=== PATIENT | male | born 1955 | race Caucasian/White ===

== ENCOUNTER 2021-08-22 04:53 | Emergency (ER) | payer MEDICARE, BC ==
--- NOTE | 2021-08-22 05:21 | EDM.PDOC ---
ED HPI GENERAL MEDICAL PROBLEM - General Chief Complaint: General Stated Complaint: FALL INJURING LEFT SIDE Time Seen by Provider: 08/22/21 05:10 Source of Information: Reports: Patient History Limitations: Reports: No Limitations - History of Present Illness INITIAL COMMENTS - FREE TEXT/NARRATIVE: Baldomero is a 66-year-old male presenting to the ED for evaluation of injuries related to a fall this morning. Patient states he has not been feeling well for the last couple of days with congestion, cough, shortness of breath and chest tightness. He has been sleeping downstairs at the cabin to isolate himself from his due to his illness. This morning he got up and needed to go to the bathroom but instead of going upstairs he decided to had outdoors. Unfortunately he did not make it as he had a syncopal episode landing on the concrete floor of the downstairs cabin. His heard him fall and went down to check on him finding him on the ground. He struck the posterior left side of his head, chest, left shoulder and the left hip on the ground. In addition to the pain in these locations he also is complaining of neck pain. He was able to ambulate. The reason that he decided to go outside instead of upstairs to the bathroom as he is also been experiencing right and knee pain and had just undergone an MRI of the knee to evaluate for this. He does report having syncopal episodes previously secondary to pain. He is not really certain of the events that led up to his unconsciousness this morning. The patient has been vaccinated for Covid with the J&J vaccine x1. Left Shoulder Pain Score (Numeric/FACES): 6 - Related Data Allergies Allergy/AdvReac Type Severity Reaction Status Date / Time No Known Allergies Allergy Verified 08/22/21 05:20 Home Meds: Home Meds Citalopram Hydrobromide [Celexa] 10 mg PO DAILY 08/22/21 [History] Zolpidem Tartrate [Ambien] 5 mg PO BEDTIME 08/22/21 [History] atorvaSTATin [Lipitor] 10 mg PO DAILY 08/22/21 [History] ED ROS GENERAL - Review of Systems Review Of Systems: See Below Constitutional: Reports: Chills, Fatigue HEENT: Reports: Rhinitis Respiratory: Reports: Shortness of Breath, Cough Cardiovascular: Reports: Chest Pain (Posterior left chest) Endocrine: Reports: Fatigue GI/Abdominal: Reports: No Symptoms : Reports: No Symptoms Musculoskeletal: Reports: Neck Pain, Shoulder Pain (Left shoulder pain), Joint Pain (Left hip pain) Skin: Reports: Wound (An abrasion on the left scalp over the temporal region and over the left mastoid.) Neurological: Reports: Syncope Psychiatric: Reports: No Symptoms Hematologic/Lymphatic: Reports: No Symptoms Immunologic: Reports: Seasonal Allergy ED EXAM, GENERAL - Physical Exam Exam: See Below Exam Limited By: No Limitations General Appearance: Alert, Mild Distress Eye Exam: Bilateral Eye: EOMI, Nystagmus (Nystagmus with rightward gaze causing some dizziness.), PERRL Ears: Normal External Exam, Normal TMs Throat/Mouth: Normal Inspection, Normal Oropharynx Head: Normocephalic, Other (Small abrasion over the temporal scalp on the left as well as the mastoid process on the left). No: Facial Swelling, Facial Tenderness Neck: Normal Inspection, Full Range of Motion, Tender Lateral (Tenderness of the left posterior neck), Tender Midline Respiratory/Chest: No Respiratory Distress, Lungs Clear, Normal Breath Sounds, Other (Tenderness with palpation on the left side over the scapula and posterior lower chest). No: Rales, Rhonchi, Wheezing Cardiovascular: Normal Peripheral Pulses, Regular Rate, Rhythm, No Murmur Peripheral Pulses: 2+: Radial (L), Radial (R) GI/Abdominal: Normal Bowel Sounds, Soft, Non-Tender Back Exam: Normal Inspection Extremities: Normal Inspection Neurological: Alert, Oriented, Normal Cognition, No Motor/Sensory Deficits Psychiatric: Normal Affect, Normal Mood Skin Exam: Warm, Dry, Normal Color, No Rash Lymphatic: No Adenopathy #1 Interpretation EKG Date: 08/22/21 Time: 05:12 Rhythm: NSR Rate (Beats/Min): 61 [place]: Normal P-Wave: Present QRS: Normal ST-T: Normal QT: Normal Comparison: NA - No Prior EKG Course - Vital Signs Last Recorded V/S: Last Vital Signs Temp 36.4 C 08/22/21 05:15 Pulse 62 08/22/21 05:15 Resp 18 08/22/21 05:15 BP 125/75 08/22/21 05:15 Pulse Ox 98 08/22/21 05:15 - Orders/Labs/Meds Orders: Active Orders 24 hr Category Date Time Status Cervical Spine wo Cont [CT] Stat Exams 08/22/21 05:08 Taken Chest 2V [CR] Stat Exams 08/22/21 05:21 Ordered Head wo Cont [CT] Stat Exams 08/22/21 05:08 Taken Hip Min 2V or 3V Lt [CR] Stat Exams 08/22/21 05:08 Ordered Shoulder Comp Lt [CR] Stat Exams 08/22/21 05:08 Ordered UA W/MICROSCOPIC [URIN] Stat Lab 08/22/21 05:10 Ordered Sodium Chloride 0.9% [Normal Saline] 1,000 ml Med 08/22/21 05:45 Active IV ASDIRECTED Sodium Chloride 0.9% [Saline Flush] Med 08/22/21 05:44 Active 10 ml FLUSH ASDIRECTED PRN Saline Lock Insert [OM.PC] Routine Oth 08/22/21 05:44 Ordered EKG 12 Lead [EK] Routine Ther 08/22/21 05:09 Ordered Medication Orders Sodium Chloride (Normal Saline) 1,000 mls @ 999 mls/hr IV ASDIRECTED GETACHEW Last Admin: 08/22/21 06:09 Dose: 999 mls/hr Documented by: ELIZABETH Sodium Chloride (Sodium Chloride 0.9% 10 Ml Syringe) 10 ml FLUSH ASDIRECTED PRN PRN Reason: Keep Vein Open Last Admin: 08/22/21 06:10 Dose: 10 ml Documented by: ELIZABETH Labs: Laboratory Tests 08/22/21 08/22/21 08/22/21 Range/Units 05:15 05:23 05:23 WBC 7.5 (4.5-11.0) K/uL RBC 4.47 (4.30-5.90) M/uL Hgb 13.8 (12.0-15.0) g/dL Hct 41.6 (40.0-54.0) % MCV 93 (80-98) fL MCH 31 (27-31) pg MCHC 33 (32-36) % Plt Count 195 (150-400) K/uL Neut % (Auto) 81.4 H (36-66) % Lymph % (Auto) 9.7 L (24-44) % [place] % (Auto) 8.3 H (2-6) % Eos % (Auto) 0.3 L (2-4) % Baso % (Auto) 0.3 (0-1) % Sodium 136 L (140-148) mmol/L Potassium 3.5 L (3.6-5.2) mmol/L Chloride 100 (100-108) mmol/L Carbon Dioxide 24 (21-32) mmol/L Anion Gap 15.5 H (5.0-14.0) mmol/L BUN 22 H (7-18) mg/dL Creatinine 1.3 (0.8-1.3) mg/dL Est Cr Clr Drug Dosing 28.76 mL/min Estimated GFR (MDRD) 55 L (>60) Glucose 147 H (74-106) mg/dL Calcium 8.3 L (8.5-10.1) mg/dL Total Bilirubin 0.4 (0.2-1.0) mg/dL AST 29 (15-37) U/L ALT 42 (12-78) U/L Alkaline Phosphatase 93 (46-116) U/L C-Reactive Protein 6.74 H (0.0-0.3) mg/dL Total Protein 6.8 (6.4-8.2) g/dL Albumin 3.5 (3.4-5.0) g/dL Globulin 3.3 (2.3-3.5) g/dL Albumin/Globulin Ratio 1.1 L (1.2-2.2) SARS-CoV-2 RNA (MEGAN) Positive H (NEGATIVE) Meds: Medications Generic Name Dose Route Start Last Admin Trade Name Freq PRN Reason Stop Dose Admin Sodium Chloride 1,000 mls @ 999 mls/hr 08/22/21 05:45 08/22/21 06:09 Normal Saline IV 999 mls/hr ASDIRECTED GETACHEW Administration Sodium Chloride 10 ml 08/22/21 05:44 08/22/21 06:10 Sodium Chloride 0.9% 10 Ml Syringe FLUSH 10 ml ASDIRECTED PRN Administration Keep Vein Open - Re-Assessments/Exams Free Text/Narrative Re-Assessment/Exam: 08/22/21 06:13 I reviewed Baldomero's labs showing a normal CBC with a leukocyte count of 7.5, hemoglobin of 13.8, hematocrit of 41.6 and platelet count of 195,000. His comprehensive metabolic panel is normal with the exception of a creatinine 1.3 and a calcium of 8.3. His GFR is calculated at 55. The remainder of his panel shows a sodium 136, potassium 3.5, chloride of 100, b icarbonate of 24, BUN of 22. C-reactive protein is elevated at 6.74 and the patient is positive for COVID-19. Evaluated the CT of the head without contrast and of the cervical spine without contrast. The CT of the head did not demonstrate any evidence for cranial abnormality like fracture. There was no intracranial hemorrhage, mass, or midline shift. The CT of the cervical spine did not demonstrate any prevertebral swelling, malalignment, fracture, or spondylolisthesis. X-ray of the chest failed to demonstrate any acute rib fractures or abnormalities in the cardiopulmonary anatomy. X-ray of the left shoulder was unremarkable for any acute osseous abnormalities. X-ray of the left hip was also unremarkable for any acute abnormalities. Overall, I believe the patient likely had vasovagal syncope due to a distended bladder. He did experience incontinence of urine during this episode. He did suffer a concussion, however, it is difficult to ascertain how significant as he took Ambien to sleep and some of his slow responses may be due to the Ambien. He also suffered bruising of the posterior chest wall on the left and left hip. At this time, I believe the patient is suitable for discharge home. He did have some mild hypotension and received IV normal saline. He also had some anxiety and hyperventilating leading to tingling in his fingers. Patient is Covid positive so he should isolate until his symptoms riley. He is eligible for monoclonal antibody therapy. He has agreed for this and I will place the order so that he can get it tomorrow. Indications return to the ED were discussed with the patient and he was suitable for discharge home in satisfactory condition. Departure - Departure Time of Disposition: 07:00 Disposition: Home, Self-Care 01 Clinical Impression: COVID-19, Vasovagal syncope, Anxiety, Contusion of left hip, initial encounter Urinary incontinence Qualifiers: Urinary Incontinence type: other incontinence Qualified Code(s): N39.498 - Other specified urinary incontinence Concussion Qualifiers: Encounter type: initial encounter Loss of consciousness presence/duration: with LOC of 30 min or less Qualified Code(s): S06.0X1A - Concussion with loss of consciousness of 30 minutes or less, initial encounter Contusion of left chest wall Qualifiers: Encounter type: initial encounter Qualified Code(s): S20.212A - Contusion of left front wall of thorax, initial encounter Contusion of left shoulder Qualifiers: Encounter type: initial encounter Qualified Code(s): S40.012A - Contusion of left shoulder, initial encounter - Discharge Information Instructions: COVID-19: What to Do If You Are Sick- CDC (01/13/2021), COVID-19: How to Protect Yourself and Others - CDC, Syncope, [id number], Concussion, Adult, [id number], Supporting Someone With Anxiety, Blunt Chest Trauma, Contusion Referrals: PCP,None [Primary Care Provider] - Forms: ED Department Discharge Care Plan Goals: Work-up today has shown that you have COVID-19. I have scheduled you for monoclonal therapy. You will be contacted tomorrow morning to schedule this. I would highly recommend that you do not take your Ambien for sleep while you have COVID-19. You did sustain a mild concussion due to the fall so my recommendation is to rest. Make sure you drink a fair amount of fluids to prevent dehydration. Treat your fever and body aches with Tylenol or ibuprofen. You may take Robitussin or Robitussin-DM for your cough. There was no evidence for a pneumonia on your chest x-ray. There was no evidence for any fractures involving your chest wall, left shoulder, or left hip. The CT of your head and cervical spine did not show any acute abnormalities. You will need to quarantine until your symptoms are gone for least 24 hours. Sepsis Event Note (ED) - Focused Exam Vital Signs: Vital Signs Temp Pulse Resp BP Pulse Ox 08/22/21 05:15 36.4 C 62 18 125/75 98 - Problem List & Annotations (1) Anxiety SNOMED Code(s): 53598359 Code(s): F41.9 - ANXIETY DISORDER, UNSPECIFIED Status: Acute Priority: High Current Visit: Yes (2) COVID-19 SNOMED Code(s): 549070989 Code(s): U07.1 - COVID-19 Status: Acute Priority: High Current Visit: Yes (3) Concussion SNOMED Code(s): 252983176 Code(s): S06.0X9A - CONCUSSION W LOSS OF CONSCIOUSNESS OF UNSP DURATION, INIT Status: Acute Priority: High Current Visit: Yes Qualifiers: Encounter type: initial encounter Loss of consciousness presence/duration: with LOC of 30 min or less Qualified Code(s): S06.0X1A - Concussion with loss of consciousness of 30 minutes or less, initial encounter (4) Contusion of left chest wall SNOMED Code(s): 34044416341581824 Code(s): S20.212A - CONTUSION OF LEFT FRONT WALL OF THORAX, INITIAL ENCOUNTER Status: Acute Priority: High Current Visit: Yes Qualifiers: Encounter type: initial encounter Qualified Code(s): S20.212A - Contusion of left front wall of thorax, initial encounter (5) Contusion of left hip, initial encounter SNOMED Code(s): 89406661 Code(s): S70.02XA - CONTUSION OF LEFT HIP, INITIAL ENCOUNTER Status: Acute Priority: High Current Visit: Yes (6) Contusion of left shoulder SNOMED Code(s): 46120444 Code(s): S40.012A - CONTUSION OF LEFT SHOULDER, INITIAL ENCOUNTER Status: Acute Priority: High Current Visit: Yes Qualifiers: Encounter type: initial encounter Qualified Code(s): S40.012A - Contusion of left shoulder, initial encounter (7) Urinary incontinence SNOMED Code(s): 691828598 Code(s): R32 - UNSPECIFIED URINARY INCONTINENCE Status: Acute Priority: High Current Visit: Yes Qualifiers: Urinary Incontinence type: other incontinence Qualified Code(s): N39.498 - Other specified urinary incontinence (8) Vasovagal syncope SNOMED Code(s): 360360811 Code(s): R55 - SYNCOPE AND COLLAPSE Status: Acute Priority: High Current Visit: Yes - Problem List Review Problem List Initiated/Reviewed/Updated: Yes - My Orders Last 24 Hours: My Active Orders 08/22/21 05:08 Cervical Spine wo Cont [CT] Stat Head wo Cont [CT] Stat Hip Min 2V or 3V Lt [CR] Stat Shoulder Comp Lt [CR] Stat 08/22/21 05:09 EKG 12 Lead [EK] Routine 08/22/21 05:10 UA W/MICROSCOPIC [URIN] Stat 08/22/21 05:21 Chest 2V [CR] Stat 08/22/21 05:44 Sodium Chloride 0.9% [Saline Flush] 10 ml FLUSH ASDIRECTED PRN Saline Lock Insert [OM.PC] Routine 08/22/21 05:45 Sodium Chloride 0.9% [Normal Saline] 1,000 ml IV ASDIRECTED - Assessment/Plan Last 24 Hours: My Active Orders 08/22/21 05:08 Cervical Spine wo Cont [CT] Stat Head wo Cont [CT] Stat Hip Min 2V or 3V Lt [CR] Stat Shoulder Comp Lt [CR] Stat 08/22/21 05:09 EKG 12 Lead [EK] Routine 08/22/21 05:10 UA W/MICROSCOPIC [URIN] Stat 08/22/21 05:21 Chest 2V [CR] Stat 08/22/21 05:44 Sodium Chloride 0.9% [Saline Flush] 10 ml FLUSH ASDIRECTED PRN Saline Lock Insert [OM.PC] Routine 08/22/21 05:45 Sodium Chloride 0.9% [Normal Saline] 1,000 ml IV ASDIRECTED
[2021-08-22] MEDS ORDERED: Sodium Chloride 0.9% 10 ML Syringe FLUSH PRN (05:44)
[2021-08-22] MEDS ORDERED: Sodium Chloride 0.9% 1,000 ML IV SCH (05:45)
--- NOTE | 2021-08-22 06:46 | CRLCT ---
For Patients: As a result of the Cures Act, medical imaging exams and procedure reports are released immediately into your electronic medical record. You may view this report before your referring provider. If you have questions, please contact your health care provider. INDICATION: Fall, headache TECHNIQUE: CT Head without i.v. contrast. Coronal and sagittal reformats were obtained. COMPARISON: None FINDINGS: CSF space: Unremarkable for age. Brain: No evidence of mass, acute infarction or hemorrhage is seen. No mass-effect or midline shift is seen. Mild diffuse cortical atrophy is noted. The brain parenchyma is otherwise normal in appearance with preservation of the rivera-white matter junction. Calvarium: Mucosal thickening is seen in the ethmoid sinuses and the right frontal sinus. The mastoid air cells are clear. The visualized orbits are grossly unremarkable. The calvarium is unremarkable in appearance with no fractures identified. IMPRESSION: 1. No evidence of acute infarction, intracranial hemorrhage, or mass-effect seen. Dictated by Lamont Coombs MD @ 08/22/2021 6:45:58 AM Please note that all CT scans at this facility use dose modulation, iterative reconstruction, and/or weight-based dosing when appropriate to reduce radiation dose to as low as reasonably achievable. Dictated by: Lamont Coombs MD @ 08/22/2021 06:46:03 (Electronically Signed)
--- NOTE | 2021-08-22 06:50 | CRLCT ---
For Patients: As a result of the Cures Act, medical imaging exams and procedure reports are released immediately into your electronic medical record. You may view this report before your referring provider. If you have questions, please contact your health care provider. INDICATION: Fall, cervical spine pain TECHNIQUE: CT cervical spine without i.v. contrast. Coronal and sagittal reformats were obtained. COMPARISON: None FINDINGS: Alignment: Unremarkable. Bone: No acute fractures or aggressive bone lesions are identified. Disc: Moderate degenerative disc disease is present at C4-5 and C5-6. Scattered facet osteoarthritis is noted bilaterally. Soft tissue: The prevertebral soft tissues are unremarkable in appearance. Patchy ground-glass infiltrates are present within the apices. IMPRESSIONS: 1. No acute osseous injuries are identified. 2. Patchy ground-glass infiltrates are present within the apices. Findings may be due to COVID-19 infection. Dictated by Lamont Coombs MD @ 08/22/2021 6:49:45 AM Please note that all CT scans at this facility use dose modulation, iterative reconstruction, and/or weight-based dosing when appropriate to reduce radiation dose to as low as reasonably achievable. Dictated by: Lamont Coombs MD @ 08/22/2021 06:49:48 (Electronically Signed)
--- NOTE | 2021-08-23 11:13 | CR ---
Hip Min 2V or 3V Lt, CLINICAL HISTORY: Fall, hip pain FINDINGS: No fracture or dislocation is identified. Articular surfaces are smooth. Impression: Negative Shoulder Comp Lt CLINICAL HISTORY: Fall, pain FINDINGS: There is no acute fracture or dislocation in the left shoulder. There is some spurring at the AC joint. Impression: No fracture or dislocation
--- NOTE | 2021-08-23 11:22 | CR ---
CHEST: 2 view CLINICAL HISTORY:Left posterior rib pain COMPARISON:None FINDINGS: The heart size, pulmonary vascularity and hilar structures are normal. No infiltrate effusion or pneumothorax is seen. IMPRESSION: No acute cardiopulmonary process .
[2021-08-23] MEDS ORDERED: diphenhydrAMINE 50 MG/ML SDV IM PRN (14:00)
[2021-08-23] MEDS ORDERED: [UNRECOGNIZED DRUG - OTHER] SUBCUT ONE (14:00)
[2021-08-23] MEDS ORDERED: EPINEPHrine 1 MG/ML SDV IM PRN (14:00)
[2021-08-23] MEDS ORDERED: Acetaminophen 325 MG Tab PO PRN (14:00)
[2021-08-23] MEDS ORDERED: [UNRECOGNIZED DRUG - OTHER] SUBCUT ONE (14:00)
[2021-08-23] MEDS ORDERED: methylPREDNISolone Sodium Succinate 125 MG/2 ML SDV IM PRN (14:00)
== END 2021-08-22 07:45 | disposition home or self-care (01) ==
LOC: JP.ED 04:53
DX: R55 Syncope and collapse (principal); S06.0X1A Concussion with loss of consciousness of 30 minutes or less, initial encounter; S70.02XA Contusion of left hip, initial encounter; S20.212A Contusion of left front wall of thorax, initial encounter; S40.012A Contusion of left shoulder, initial encounter; S00.01XA Abrasion of scalp, initial encounter; U07.1 COVID-19; F41.9 Anxiety disorder, unspecified; N39.498 Other specified urinary incontinence; W18.30XA Fall on same level, unspecified, initial encounter
CPT/HCPCS: 36415; 70450; 71046; 72125; 73030; 73502; 80053; 85025; 86140; 93005; 99285; J7030; U0002